=== PATIENT | female | born 1980 | race Hispanic/Latino ===

== ENCOUNTER 2023-09-25 09:54 | Observation (INO) | payer SELFPAY ==
[2023-09-25] VITALS (27 sets, daily range): BP systolic 83–125; BP diastolic 52–83; PULSE 63–111; RESP 12–20; TEMP 36.2–37.2; O2SAT 96–100; BMI 26.6
--- NOTE | 2023-09-25 | PATH_ITS ---
[facility] Accession Number: [id number] No. of containers..01 Tissue . 01 Material submitted: . appendix - APPENDIX . 01 Diagnosis: Appendix, Appendectomy: Acute appendicitis. No evidence of neoplasm. MRV 09/28/2023 1522 Local . 01 Electronically signed: . Bran Avila MD, PhD, Pathologist NPI- [id number] . 01 Gross description: . The specimen is received in formalin labeled with the patient's name, , and appendix, and consists of a barrera vermiform appendix measuring 5.3 cm in length by 0.6 cm in diameter with smooth serosa and a small amount of mesoappendix extending out to 1.0 cm. The margin is inked blue, and sectioning reveals the lumen to be filled with red-brown semi-solid material and averages 0.4 cm in diameter. The villanueva average 0.3 cm thick with no perforation or lesions identified. Complaints Coordinator sections to include one-half of the bisected distal tip, margin, and cross-sections are submitted in cassette A1. ([id number]) /DEVON 09/26/20238 Local . 01 Pathologist provided ICD-10: K35.80 . 01 CPT . 715925 Specimen Comment: A courtesy copy of this report has been sent to [phone] Performed at: 01 [facility] [address] [place] [address], [place], [place] [id number] MD Cabrera Huitron MD Phone: [phone]
--- NOTE | 2023-09-25 10:03 | DI.CT.S_ITS ---
PROCEDURE: CT ABDOMEN PELVIS W CON INDICATIONS: midepigastric abd pain TECHNIQUE: After the administration of intravenous contrast, axial sections acquired from the lung bases to the pubic symphysis. Coronal and sagittal reformats were performed. For radiation dose reduction, the following was used: automated exposure control, adjustment of mA and/or kV according to patient size. COMPARISON: None. FINDINGS: Image quality: Diagnostic. Lower Chest: No significant findings. ABDOMEN: Liver: No solid mass. Hepatic steatosis. Simple left hepatic cyst. Gallbladder: No radiopaque gallstones or wall thickening. Biliary ducts: No biliary dilation. Pancreas: No ductal dilation. Spleen: Size is within normal limits. Adrenal Glands: No adrenal nodules. Kidneys and Ureters: No hydronephrosis. No solid mass. No complex renal cystic lesion which requires follow up. Stomach and Bowel: Normal colonic caliber, without significant wall thickening. The appendix is enlarged measuring 18 9 mm with mild periappendiceal inflammatory change. No appendicoliths. No rupture. No free air or free fluid. The Peritoneum: No abnormal intraperitoneal fluid. No free air. Ventral Wall: No significant ventral hernia. Abdominal Nodes: No retroperitoneal or mesenteric adenopathy by size criteria. Vessels: Aorta and inferior vena cava are normal in size. PELVIS: Pelvic Organs: Unremarkable. Bladder: No bladder wall thickening, accounting for underdistention. Pelvic Nodes: No enlarged lymph nodes. Miscellaneous: No inguinal hernias are seen. Bones: No aggressive osseous abnormality. IMPRESSION: Enlarged appendix with mild inflammatory change most suggestive with early acute appendicitis. No appendicoliths or evidence of rupture. The above findings were discussed with Dr. Dee Dee Kincaid on 09/25/2023 at 12:30 p.m. Dictated by: Carmella Cui M.D. on 09/25/2023 at 12:30 Approved by: Carmella Cui M.D. on 09/25/2023 at 12:33
--- NOTE | 2023-09-25 10:04 | ED.ABDPAIN ---
HPI - Abdominal Pain General Chief Complaint: Abdominal Pain Stated Complaint: L/ABD pain Time Seen by Provider: 09/25/23 09:55 History of Present Illness HPI narrative: 43-year-old Italian-speaking female with no reported past medical history presents by private vehicle for midepigastric pain since approximately 4:00 a.m. accompanied with nausea and chills. Reports similar episode of abdominal pain for months ago, saw primary care doctor, but no cause was found. Denies history of abdominal surgeries. Last menstrual period 1 month ago. No medications taken prior to arrival. Related Data Home Medications Medication Instructions Recorded Confirmed No Known Home Medications 09/25/23 09/25/23 Allergies Allergy/AdvReac Type Severity Reaction Status Date / Time No Known Drug Allergies Allergy Verified 09/25/23 10:04 Review of Systems Review of Systems Narrative: Negative except as noted above Patient History Social History Smoking Status: Never smoker Exam Narrative Exam Narrative: Const: Awake, alert, uncomfortable, in pain Cardiac: regular rate, regular rhythm RESP: unlabored, clear bilaterally, no wheezing GI: Soft, midepigastric tenderness to deep palpation without rebound or guarding, negative Colon sign MSK: Atraumatic, full range of motion, pulses equal Skin: Warm, Dry, intact, no rashes Neuro: AO x3, CN II-XII grossly intact, moves all extremities Psych: Appropriate for given condition Initial Vital Signs Initial Vital Signs: Vital Signs Temperature 97.8 F 09/25/23 10:01 Pulse Rate 72 09/25/23 10:01 Respiratory Rate 14 09/25/23 10:01 Blood Pressure 124/76 09/25/23 10:01 Pulse Oximetry 99 09/25/23 10:01 Oxygen Delivery Method Room Air 09/25/23 10:01 Course Orders Ordered: ED Orders 09/25/23 10:03 CT abdomen pelvis w con Stat 09/25/23 10:25 CBC Auto Diff [Complete Blood Count AUTO DIFF] Stat CMP [Comprehensive Metabolic Panel] Stat Lipase Stat 09/25/23 11:34 UA Complete [Urinalysis and Microscopic] Stat Sodium Chloride (Normal Saline 0.9%) 1,000 mls @ 125 mls/hr IV BOLUS ONE Stop: 09/25/23 20:44 Last Admin: 09/25/23 12:47 Dose: 125 mls/hr Documented By: YAMILEX Discontinued Medications Sodium Chloride (Normal Saline 0.9%) 1,000 mls @ 1,000 mls/hr IV BOLUS ONE Stop: 09/25/23 11:05 Last Infusion: 09/25/23 11:15 Dose: Infused Documented By: Admin: 09/25/23 10:30 Dose: 1,000 mls/hr Documented By: ANGELINA Piperacillin Sod/Tazobactam (Sod 4.5 gm/ Sodium Chloride) 100 mls @ 200 mls/hr IV NOW ONE Stop: 09/25/23 12:44 Last Admin: 09/25/23 12:58 Dose: 200 mls/hr Documented By: ANGELINA Morphine Sulfate (Morphine 4 Mg/Ml Inj) 4 mg IV NOW ONE Stop: 09/25/23 10:04 Last Admin: 09/25/23 10:30 Dose: 4 mg Documented By: ANGELINA Morphine Sulfate (Morphine 4 Mg/Ml Inj) 4 mg IV NOW ONE Stop: 09/25/23 12:43 Last Admin: 09/25/23 12:47 Dose: 4 mg Documented By: YAMILEX Ondansetron HCl (Ondansetron 4 Mg/2 Ml Inj) 4 mg IV NOW ONE Stop: 09/25/23 10:04 Last Admin: 09/25/23 10:30 Dose: 4 mg Documented By: ANGELINA Vital Signs Vital signs: Vital Signs - 8 hr 09/25/23 10:01 09/25/23 11:00 09/25/23 11:31 Temperature 97.8 F Pulse Rate 72 70 73 Respiratory Rate 14 20 Blood Pressure 124/76 114/72 Pulse Oximetry 99 100 98 Oxygen Delivery Method Room Air Room Air 09/25/23 11:31 09/25/23 12:00 Temperature Pulse Rate 78 Respiratory Rate Blood Pressure 113/67 Pulse Oximetry 99 Oxygen Delivery Method MDM - Abdominal Pain Differential Diagnosis Differential diagnosis: Likely abdominal pain, acute appendicitis and calculus of kidney Lab Data 09/25/23 10:25 09/25/23 10:25 Labs: Lab Results 09/25/23 09/25/23 Range/Units 10:25 11:34 WBC 16.8 H (4.5-11.0) X10^3/uL RBC 5.31 H (4.0-5.2) X10^6/uL Hgb 14.9 (12.0-16.0) g/dL Hct 44.6 (36-46) % MCV 83.9 (80-100) fL MCH 28.0 (26-34) PG MCHC 33.4 (30-36) % RDW 14.2 (11.6-14.8) % Plt Count 327 (150-400) X10^3/uL Neut % (Auto) 87.2 H (50-75) % Lymph % (Auto) 6.9 L (25-40) % [place] % (Auto) 5.2 (3-14) % Eos % (Auto) 0.1 L (2-4) % Baso % (Auto) 0.6 (0-2) % Neut # (Auto) 83882 H (0900-1069) /uL Lymph # (Auto) 1200 (1693-9735) /uL [place] # (Auto) 900 (0-900) /uL Eos # (Auto) 0 (0-450) /uL Baso # (Auto) 100 (0-100) /uL Sodium 136 L (137-145) mmol/L Potassium 3.4 (3.4-5.1) mmol/L Chloride 102 (98-107) mmol/L Carbon Dioxide 18 L (22-32) mmol/L BUN 11 (7-17) mg/dL Creatinine 0.51 L (0.52-1.04) mg/dL Estimated GFR > 60 (>60) mL/min BUN/Creatinine Ratio 21.6 (6-22) Glucose 105 H (70-100) mg/dL Calcium 9.6 (8.4-10.2) mg/dL Total Bilirubin 1.1 (0.2-1.3) mg/dL AST 31 (14-36) IU/L ALT 19 (<35) IU/L Alkaline Phosphatase 87 (38-126) U/L Total Protein 9.4 H (6.3-8.2) g/dL Albumin 5.0 (3.5-5.0) g/dL Globulin 4.4 H (1.7-4.1) g/dL Albumin/Globulin Ratio 1.1 (1.0-2.8) Lipase 115 (23-300) U/L Urine Color Yellow Urine Appearance Clear Urine pH 7.5 (4.5-8.0) Ur Specific [place] 1.015 (1.000-1.035) Urine Protein Negative (Negative) Urine Glucose (UA) Negative (Negative) g/dL Urine Ketones 3+ H (NEGATIVE) Urine Occult Blood Negative (Negative) Urine Nitrate Negative (Negative) Urine Bilirubin Negative (NEGATIVE) Urine Urobilinogen 0.2 (0.2) E.U./dL Ur Leukocyte Esterase Negative (NEGATIVE) Urine RBC None seen (0-5/HPF) Urine WBC None seen (0-5/HPF) Ur Squamous Epith Cells 5-10 /hpf H (0-5/HPF) Urine Bacteria None seen (None) Ur Culture Indicated? Cult not indicated Vol Urine Centrifuged 10ml (spun) Point of care testing: Point of Care Testing Test Results Negative MDM Narrative Medical decision making narrative: Uncomfortable but nontoxic patient with episodic midepigastric pain. Abdomen is soft but she does have marked tenderness in the midepigastric region. States that sometimes pain refers to the right upper quadrant. We will order laboratory work and CT imaging, with consideration for ultrasound depending on CT findings. Antiemetics and pain medications ordered. Laboratory work significant for leukocytosis, WBCs 16.8. Lipase normal. Liver enzymes normal. Pending CT imaging. Call received from Dr. Cui of Radiology, patient has early-onset acute appendicitis. Call placed to Dr. Moser of General surgery, who will admit the patient with potential add-on to the OR schedule Discharge Plan Departure Patient Disposition: Admitted as Observation Clinical Impression: Acute appendicitis Admit Date/Time: 09/25/23 12:43 Admit Provider: Maurizio Moser
[2023-09-25] MEDS: MORPHINE 4 MG/ML INJ IV ×2 (10:30→12:47)
[2023-09-25] MEDS: ONDANSETRON 4 MG/2 ML INJ IV (10:30)
[2023-09-25] MEDS: SODIUM CHLORIDE 0.9% 1,000 ML 1000 ML IV (10:30)
[2023-09-25 10:32] LABS: Add Manual Diff / Slide Review NO; Basophils Absolute Auto 100 /uL (0-100); Basophils Percent Auto 0.6 % (0-2); Eosinophils Absolute Auto 0 /uL (0-450); Eosinophils Percent Auto 0.1 % (2-4); Hematocrit 44.6 % (36-46); Hemoglobin 14.9 g/dL (12.0-16.0); Lymphocytes Absolute Auto 1200 /uL (1100-4500); Lymphocytes Percent Auto 6.9 % (25-40); Mean Corpuscular HGB Conc 33.4 % (30-36); Mean Corpuscular Volume 83.9 fL (80-100); Monocytes Absolute Auto 900 /uL (0-900); Monocytes Percent Auto 5.2 % (3-14); Neutrophils Absolute Auto 14700 /uL (1500-7000); Neutrophils Percent Auto 87.2 % (50-75); Platelet Count 327 X10^3/uL (150-400); Red Blood Cell Count 5.31 X10^6/uL (4.0-5.2); Red Cell Distribution Width 14.2 % (11.6-14.8); White Blood Cell Count 16.8 X10^3/uL (4.5-11.0)
[2023-09-25 10:42] LABS: Alanine Aminotransferase 19 IU/L (<35); Albumin Globulin Ratio 1.1 (1.0-2.8); Alkaline Phosphatase 87 U/L (38-126); Aspartate Aminotransferase 31 IU/L (14-36); BUN Creatinine Ratio 21.6 (6-22); Bilirubin Total 1.1 mg/dL (0.2-1.3); Blood Urea Nitrogen 11 mg/dL (7-17); Calcium 9.6 mg/dL (8.4-10.2); Carbon Dioxide 18 mmol/L (22-32); Chloride 102 mmol/L (98-107); Estimated Glomerular Filt Rate > 60 mL/min (>60); Globulin 4.4 g/dL (1.7-4.1); Glucose 105 mg/dL (70-100); HEMOLYSIS 23 (0-50); Lipase 115 U/L (23-300); Potassium 3.4 mmol/L (3.4-5.1); Sodium 136 mmol/L (137-145); Total Protein 9.4 g/dL (6.3-8.2)
[2023-09-25 11:42] LABS: Appearance Urine UA CLEAR; Bilirubin Urine UA NEGATIVE (NEGATIVE); Color Urine UA YELLOW; Glucose Urine UA NEGATIVE (Negative); Ketones Urine UA 3+ (NEGATIVE); Leukocyte Esterase Urine UA NEGATIVE (NEGATIVE); Nitrite Urine UA NEGATIVE (Negative); Occult Blood Urine UA NEGATIVE (Negative); Protein Urine UA NEGATIVE (Negative); Specific Gravity Urine UA 1.015 (1.000-1.035); Urine Volume 10mL (spun); Urobilinogen Urine UA 0.2 E.U./dL (0.2); pH Urine UA 7.5 (4.5-8.0)
[2023-09-25 11:45] LABS: Bacteria Urine None Seen; Culture Indicated Urine Cult Not Indicated; RBC Urine None Seen (0-5/HPF); Squamous Epithelial Cell Urine 5-10 /HPF (0-5/HPF); WBC Urine None Seen (0-5/HPF)
[2023-09-25] MEDS: SODIUM CHLORIDE 0.9% 1,000 ML 125 ML IV (12:47)
[2023-09-25] MEDS: PIPERACILLIN/TAZO 4.5 GM in SODIUM CHLORIDE 0.9% 100 ML IV (12:58)
--- NOTE | 2023-09-25 16:38 | PM.HP.1 ---
History of Present Illness History of Present Illness Date Patient Seen: 09/25/23 Time Patient Seen: 16:38 Chief complaint: L/ABD pain Narrative: 43F azerbaijani speaking only who presents to [facility] with acute onset abdominal pain epigastric and RLQ. No Fever or emesis. No prior abdominal surgery. CT A/P demonstrates dilated appendix with stranding no absess. At admission WBC 17. No significant past medical history. [facility] Social History household members: spouse and family Smoking Status: Never smoker alcohol intake: current Meds Home Medications and Allergies Home Medications Medication Instructions Recorded Confirmed Type No Known Home Medications 09/25/23 09/25/23 History Allergies Allergy/AdvReac Type Severity Reaction Status Date / Time No Known Drug Allergies Allergy Verified 09/25/23 10:04 Exam Vital Signs (past 8 hours): - 09/25/23 10:01 09/25/23 11:00 09/25/23 11:31 Temperature 97.8 F Pulse Rate 72 70 73 Respiratory Rate 14 20 Blood Pressure 124/76 114/72 Pulse Oximetry 99 100 98 Oxygen Delivery Method Room Air Room Air Oxygen Flow Rate 09/25/23 11:31 09/25/23 12:00 09/25/23 13:19 Temperature Pulse Rate 78 72 Respiratory Rate 18 Blood Pressure 113/67 115/69 Pulse Oximetry 99 100 Oxygen Delivery Method Room Air Oxygen Flow Rate 09/25/23 13:30 Temperature 98.9 F Pulse Rate 87 Respiratory Rate 20 Blood Pressure 115/68 Pulse Oximetry 96 Oxygen Delivery Method Oxygen Flow Rate 0 Oxygen Delivery Method Room Air Oxygen Flow Rate 0 Narrative Exam Narrative: Gen-Adult woman alert and oriented no distress Chest-Non labored resp Abdomen-tender RLQ no peritonitis. Objective Labs 09/25/23 10:25 09/25/23 10:25 Labs: Laboratory Results - last 24 hr 09/25/23 09/25/23 10:25 11:34 WBC 16.8 H RBC 5.31 H Hgb 14.9 Hct 44.6 MCV 83.9 MCH 28.0 MCHC 33.4 RDW 14.2 Plt Count 327 Neut % (Auto) 87.2 H Lymph % (Auto) 6.9 L [place] % (Auto) 5.2 Eos % (Auto) 0.1 L Baso % (Auto) 0.6 Neut # (Auto) 32997 H Lymph # (Auto) 1200 [place] # (Auto) 900 Eos # (Auto) 0 Baso # (Auto) 100 Sodium 136 L Potassium 3.4 Chloride 102 Carbon Dioxide 18 L BUN 11 Creatinine 0.51 L Estimated GFR > 60 BUN/Creatinine Ratio 21.6 Glucose 105 H Calcium 9.6 Total Bilirubin 1.1 AST 31 ALT 19 Alkaline Phosphatase 87 Total Protein 9.4 H Albumin 5.0 Globulin 4.4 H Albumin/Globulin Ratio 1.1 Lipase 115 Urine Color Yellow Urine Appearance Clear Urine pH 7.5 Ur Specific [place] 1.015 Urine Protein Negative Urine Glucose (UA) Negative Urine Ketones 3+ H Urine Occult Blood Negative Urine Nitrate Negative Urine Bilirubin Negative Urine Urobilinogen 0.2 Ur Leukocyte Esterase Negative Urine RBC None seen Urine WBC None seen Ur Squamous Epith Cells 5-10 /hpf H Urine Bacteria None seen Ur Culture Indicated? Cult not indicated Vol Urine Centrifuged 10ml (spun) Assessment & Plan Assessment and plan (1) Acute appendicitis: Status: Acute Assessment & Plan narrative: 43F no significant past medical history with acute appendicitis. Labs and imaging personally reviewed significant for leukocytosis and dilated appendix with stranding no abscess. Discussed with patient management options including medical therapy with abx vs appendectomy. Following discussion preference is to proceed with surgery. Operative risks including but not limited to infection, hemorrhage, damage to surrounding structures, discussed. She provides her written and verbal consent to proceed. Quality VTE Deep Vein Thrombosis/Pulmonary Embolism Present on Admission: No
--- NOTE | 2023-09-25 16:49 | PC.NURSE ---
Patient arrived to room 203 at 1330 this afternoon. She is A&Ox4, mohawk speaking only. at bedside completes admission assessment. VSS, afebrile on RA. IVF NS @125ml/hr. She reports pain in abdomen has subsided. Anesthesiologist at bedside completing consent with and patient at bedside in [place]. They decline further questions about the procedure. She remains NPO and states she has not eaten or drank anything since yesterday. She has one episode of n/v prior to transport via bed to surgery with preop RN's at 1645.
[2023-09-25] MEDS: LACTATED RINGERS 1,000 ML 42 ML IV (17:00)
[2023-09-25] MEDS: ACETAMINOPHEN IV 1,000 MG/100 ML VIAL 400 MG IV (17:13)
--- NOTE | 2023-09-25 17:40 | SUR.OPER ---
Supine on padded OR bed, head on pillow, right arm secured on padded arm boards at <90 degrees abduction, left arm padded with gel pad at tucked at side, legs uncrossed, safety belt at thigh, tape over blanket over lower legs.
[2023-09-25] MEDS: BUPIVACAINE 0.25% (PF) VIAL 30 ML INJ (17:50)
[2023-09-25] MEDS: OXYCODONE IR 5 MG TABLET PO (18:41)
--- NOTE | 2023-09-25 19:13 | P.OP_ITS ---
Operative Date/Time/Diagnoses Date of procedure: 09/25/23 Time of procedure: 19:13 Pre-op diagnosis: Acute appendicitis Post-op diagnosis: same Procedure & Clinicians Procedure: Laparoscopic appendectomy Same procedure as scheduled: Yes Indications: 43-year-old woman with symptoms and radiographic findings consistent with acute appendicitis without abscess. Surgeon: Maurizio Moser Click Yes if Unassisted: Yes Anesthesia Type: General Operative Notes Findings: Acute non perforated appendicitis Specimen(s): other (Appendix) Estimated Blood Loss (mL): 20 Procedure in detail: Patient was brought to the operating room placed supine on the table. Bilateral lower extremity compression devices were applied. Anesthesia was induced and they intubated with an endotracheal tube. They received 3.375 g of Zosyn prior to skin incision. The left arm was tucked and appropriately padded. They were prepped and draped in sterile fashion. Time-out was performed. An infraumbilical incision was made the umbilical stalk was grasped and elevated and incision was made and the abdomen was entered atraumatically. A 12 mm balloon trocar was then placed through the incision and pneumoperitoneum of 14 mm Hg was established. The scope was then inserted and the abdomen inspected, there was no evidence of injury upon entry. Two 5 mm ports were placed under direct visualization, one in the left lower quadrant and second in the lower midline. A thorough laparoscopic evaluation was performed inspecting all four quadrants. There is a small amount of turbid fluid within the right lower quadrant no abscess. The patient was then tilted right side up. The small bowel was then swept to the upper aspect of the abdomen. The tenie were followed to the base of the cecum where the appendix was identified. The appendix was was mobilized from its lateral attachments. It was acutely inflamed but not per forated. The appendix was grasped and a window within the mesentery was made at the base of the appendix using the [place] dissector with care to avoid injuring the cecum. The mesoappendix was then divided using the endo-stapler with a staple length of 2.5 mm-white load. The mesenteric staple line was inspected for hemostasis. The appendix was then amputated flush at the cecum using the endo-stapler blue load. The specimen was retrieved using a endoscopic retrieval bag through the 10 mm infra-umbilical port. The right paracolic gutter and the pouch of Liang were irrigated The 5 mm ports were then removed under direct visualization. The umbilical fascial incision was closed with 0 Vicryl in a figure-eight fashion. The skin wounds were irrigated and closed with 4-0 Monocryl followed by the application of Dermabond. Sponge instrument count at the end of the operation was correct. The patient tolerated procedure well was extubated and transferred to the postoperative care unit in stable condition. Complications: none Post-operative Condition: stable Disposition: observation
[2023-09-25] MEDS: DEXTROSE 5%-0.45% NS 1,000 ML 100 ML IV (19:41)
[2023-09-25] MEDS: IBUPROFEN 600 MG TABLET PO (20:05)
--- NOTE | 2023-09-25 22:08 | PC.NURSE ---
Patient returned to the floor @1930, spouse @ the bedside. Gibraltarian speaking, spouse speaks fluent Jordanian & he's translating for her. Will continue POC & monitor.
[2023-09-25] MEDS: SODIUM CHLORIDE 0.9% 500 ML 1000 ML IV (23:32)
--- NOTE | 2023-09-25 23:44 | PC.NURSE ---
Dr. Moser notified pt. C/O dizziness & B/P 86/58 & HR. 105 & pale. Ordered to bolus 500 cc of NS, order implemented. Will cont. POC & monitor.
[2023-09-26] VITALS (13 sets, daily range): BP systolic 86–117; BP diastolic 52–76; PULSE 85–107; RESP 18–20; TEMP 36.4–36.9; O2SAT 98–100
[2023-09-26] MEDS: SODIUM CHLORIDE 0.9% 1,000 ML 1000 ML IV (01:00)
--- NOTE | 2023-09-26 01:15 | PC.NURSE ---
After the bolus was completed her B/P was trending down again 87/52, 88/52 & HR 77. Dr. Moser notified again also reported she was C/O pressure back of her head. Reassessed pressure back of her head states it's gone. Orders received to give another 1 liter of NS bolus & increase same IVF to 150 cc & stat CBC. All orders are implemented, will cont. POC & monitor.
[2023-09-26 01:19] LABS: Add Manual Diff / Slide Review NO; Basophils Absolute Auto 0 /uL (0-100); Eosinophils Absolute Auto 0 /uL (0-450); Hematocrit 30.8 % (36-46); Hemoglobin 10.2 g/dL (12.0-16.0); Lymphocytes Absolute Auto 600 /uL (1100-4500); Lymphocytes Percent Auto 4.5 % (25-40); Mean Corpuscular Volume 84.8 fL (80-100); Monocytes Absolute Auto 200 /uL (0-900); Monocytes Percent Auto 1.9 % (3-14); Neutrophils Absolute Auto 11600 /uL (1500-7000); Neutrophils Percent Auto 93.6 % (50-75); Platelet Count 235 X10^3/uL (150-400); Red Blood Cell Count 3.63 X10^6/uL (4.0-5.2); Red Cell Distribution Width 14.1 % (11.6-14.8); White Blood Cell Count 12.5 X10^3/uL (4.5-11.0)
[2023-09-26] MEDS: DEXTROSE 5%-0.45% NS 1,000 ML 150 ML IV ×2 (02:12→08:44)
[2023-09-26] MEDS: OXYCODONE IR 5 MG TABLET PO ×2 (02:47→06:57)
--- NOTE | 2023-09-26 09:25 | P.PN_ITS ---
Subjective Subjective Date Patient Seen: 09/26/23 Time Patient Seen: 09:26 Interval history: Doing better today. She is just little bit bloated. Tolerating breakfast. Exam Vital Signs (past 8 hours): - 09/26/23 01:33 09/26/23 01:43 09/26/23 02:18 Temperature 97.7 F Pulse Rate 85 107 H 95 H Respiratory Rate 18 Blood Pressure 109/76 108/75 117/74 Pulse Oximetry 100 Oxygen Delivery Method Oxygen Flow Rate 09/26/23 03:00 09/26/23 03:38 09/26/23 08:23 Temperature 97.6 F 98.4 F Pulse Rate 90 86 Respiratory Rate 18 20 Blood Pressure 113/66 106/67 Pulse Oximetry 98 100 98 Oxygen Delivery Method Room Air Oxygen Flow Rate 0 0 Oxygen Delivery Method Room Air Oxygen Flow Rate 0 Const General: No acute distress Resp Effort & Inspection: normal respiratory effort Objective Labs 09/26/23 01:13 09/25/23 10:25 Labs: Laboratory Results - last 24 hr 09/25/23 09/25/23 09/26/23 10:25 11:34 01:13 WBC 16.8 H 12.5 H RBC 5.31 H 3.63 L Hgb 14.9 10.2 L Hct 44.6 30.8 L MCV 83.9 84.8 MCH 28.0 28.0 MCHC 33.4 33.0 RDW 14.2 14.1 Plt Count 327 235 Neut % (Auto) 87.2 H 93.6 H Lymph % (Auto) 6.9 L 4.5 L [place] % (Auto) 5.2 1.9 L Eos % (Auto) 0.1 L 0.0 L Baso % (Auto) 0.6 0.0 Neut # (Auto) 94318 H 46844 H Lymph # (Auto) 1200 600 L [place] # (Auto) 900 200 Eos # (Auto) 0 0 Baso # (Auto) 100 0 Sodium 136 L Potassium 3.4 Chloride 102 Carbon Dioxide 18 L BUN 11 Creatinine 0.51 L Estimated GFR > 60 BUN/Creatinine Ratio 21.6 Glucose 105 H Calcium 9.6 Total Bilirubin 1.1 AST 31 ALT 19 Alkaline Phosphatase 87 Total Protein 9.4 H Albumin 5.0 Globulin 4.4 H Albumin/Globulin Ratio 1.1 Lipase 115 Urine Color Yellow Urine Appearance Clear Urine pH 7.5 Ur Specific [place] 1.015 Urine Protein Negative Urine Glucose (UA) Negative Urine Ketones 3+ H Urine Occult Blood Negative Urine Nitrate Negative Urine Bilirubin Negative Urine Urobilinogen 0.2 Ur Leukocyte Esterase Negative Urine RBC None seen Urine WBC None seen Ur Squamous Epith Cells 5-10 /hpf H Urine Bacteria None seen Ur Culture Indicated? Cult not indicated Vol Urine Centrifuged 10ml (spun) PFSH Social History household members: spouse and family Smoking Status: Never smoker alcohol intake: current Assessment & Plan Assessment and plan (1) Postoperative examination: Status: Acute Plan Doing well on postop day 1 following laparoscopic appendectomy. Okay for discharge home today. We reviewed activity dietary guidance. Quality VTE Deep Vein Thrombosis/Pulmonary Embolism Present on Admission: No
--- NOTE | 2023-09-26 11:07 | P.DS_ITS ---
History of Present Illness History of Present Illness Date Patient Seen: 09/26/23 Time Patient Seen: 11:07 Chief complaint: L/ABD pain Discharge Providers Provider Date of admission: 09/25/23 12:43 Discharge Date: 09/26/23 Primary care physician: Doctor Jason MD Discharge provider: Milan Zaldivar MD Summary Hospital Course Hospital Course: The patient presented with acute appendicitis and went to the operating room with Dr. Moser for a laparoscopic appendectomy on September 25. The next day she was doing well and was discharged home. Exam Vital Signs (past 8 hours): - 09/26/23 03:38 09/26/23 08:23 Temperature 97.6 F 98.4 F Pulse Rate 90 86 Respiratory Rate 18 20 Blood Pressure 113/66 106/67 Pulse Oximetry 100 98 Oxygen Flow Rate 0 0 Oxygen Delivery Method Room Air Oxygen Flow Rate 0 Objective Labs 09/26/23 01:13 09/25/23 10:25 Labs: Laboratory Results - last 24 hr 09/25/23 09/26/23 11:34 01:13 WBC 12.5 H RBC 3.63 L Hgb 10.2 L Hct 30.8 L MCV 84.8 MCH 28.0 MCHC 33.0 RDW 14.1 Plt Count 235 Neut % (Auto) 93.6 H Lymph % (Auto) 4.5 L [place] % (Auto) 1.9 L Eos % (Auto) 0.0 L Baso % (Auto) 0.0 Neut # (Auto) 16302 H Lymph # (Auto) 600 L [place] # (Auto) 200 Eos # (Auto) 0 Baso # (Auto) 0 Urine Color Yellow Urine Appearance Clear Urine pH 7.5 Ur Specific [place] 1.015 Urine Protein Negative Urine Glucose (UA) Negative Urine Ketones 3+ H Urine Occult Blood Negative Urine Nitrate Negative Urine Bilirubin Negative Urine Urobilinogen 0.2 Ur Leukocyte Esterase Negative Urine RBC None seen Urine WBC None seen Ur Squamous Epith Cells 5-10 /hpf H Urine Bacteria None seen Ur Culture Indicated? Cult not indicated Vol Urine Centrifuged 10ml (spun) PFSH Social History household members: spouse and family Smoking Status: Never smoker alcohol intake: current Discharge Plan Discharge Plan Patient Disposition: Home Provider Discharge Comment: -Okay to shower -Do not submerge wounds in water until seen in follow-up. -No lifting >10 lbs x 4 weeks. -Walking only for exercise for 4 weeks. -No driving while taking narcotics. Discharge orders & Medications Prescriptions: New hydrocodone-acetaminophen 5-325 mg tablet 1 tab PO Q8H PRN (Reason: pain) Qty: 10 0RF Follow up/Referrals: Maurizio Moser MD [Physician] - Doctor Gomez MD [Primary Care Provider] - Diet/Activity/Treatments Diet: Diet as Tolerated Skin/Wound/Dressing Care Report to your healthcare provider any signs of infection, such as:: chills, fever, increased pain, unusual drainage and unusual redness Visit Report/Discharge Packet Instructions: DI for an Appendectomy, DI for Laparoscopy, DI for Prescription Opioid Use, [facility]: Wound Care Stand Alone Forms: Patient Portal/API, Stroke Signs & Symptoms Discharge Data Primary Care Provider: Doctor Jason Attending Provider: Maurizio Moser Admit Date/Time: 09/25/23 12:43 Quality VTE Deep Vein Thrombosis/Pulmonary Embolism Present on Admission: No
--- NOTE | 2023-09-26 15:38 | CM.DANOTE ---
Initial DCP Assessment Visit Note Reviewed EMR and team rounds for pt's medical status and updates. Met with pt/spouse at bedside to introduce self and role. Pt found to be alert/oriented, preparing for d/c this afternoon. No needs identified for CM assistance at d/c. Payor: Self Pay Attending: Dr. Shanti pereira Discharge Planning/Care Management CM Discharge Assessment Start: 09/26/23 15:24 Freq: Status: Active Protocol: Document 09/26/23 15:24 DPL (Rec: 09/26/23 15:38 DPL [id number]) Discharge Planning Assessment Assigned [employer] M[employer]ainer NHUNG Rocha Advance Directives? No History Provided By Patient,Significant Other, Medical Record Has Patient been admitted in last 30 No days? Prior Living Arrangements RV Household Members spouse,family Type of transporation used prior to Relies on Others admit Independent with ADL's Yes Is patient alert and oriented? Yes Comment N/A Comment N/A Comment No anticipated home d/c needs identified at this time. Barriers to Discharge No Discharge Plan Home Referrals Initiated None needed Whiteboard Updated in Patient Room with Yes name and ext. # of [employer] M[employer]ainer Review Status In Process Please Provide Date Initial DC 09/26/23 Assessment Was Performed
== END 2023-09-26 11:40 | disposition home or self-care (01) ==
LOC: ED 10:03 → AC 12:44
PROVIDERS: Admitting Provider Surgery; Emergency Provider Emergency Medicine; Referring Provider Emergency Medicine; Visit Provider Surgery
PROC: 0DTJ4ZZ Resection of Appendix, Percutaneous Endoscopic Approach (ICD-10-PCS; CPT 44970; principal; 2023-09-25 17:45)
DX: K35.80 Unspecified acute appendicitis (principal)
CPT/HCPCS: 44970; 36415; 74177; 80053; 81001; 81025; 83690; 85025; 96361; 96365; 96375; 96376; 99221; 99284; G0378; J0136; J0330; J1100; J1885; J2250; J2270; J2405; J2543; J2704; J3010; Q9967